=== PATIENT | female | born 1960 | race African-American/Black ===

== ENCOUNTER 2018-05-31 16:08 | Emergency (ER) | payer MEDICAID ==
[~2018-05-31] VITALS: Ht 170.2 cm; Wt 87.5 kg
[~2018-05-31 16:08] MED LIST: NORCO 5-325 TA1 EACH ORAL
[2018-05-31] MEDS ORDERED: BP med (16:18)
[2018-05-31] MEDS ORDERED: cholesterol (16:18)
[2018-05-31 16:20] VITALS: BP 138/87
--- NOTE | 2018-05-31 16:46 | Emergency Room Report ---
History of Present Illness General Chief Complaint: Female Urogenital Problems Source: Patient Present Illness HPI Mrs. Christian Steve is a 57-year-old female who has had vaginal bleeding and frequency of urination. She also has burning with urination. She denies hematuria. She's had recent negative pap smear. Hx history of hysterectomy transvaginal 20 years ago. Mild to moderate pelvic pain. Gradual onset 2 days ago. When standing, she has the immediate urge to urinate. Allergies: Coded Allergies: No Known Allergies (Unverified , 05/14/15) Patient History Past Medical History: see triage record Past Surgical History: hysterectomy Reviewed Nursing Documentation: PMH: Agreed; PSxH: Agreed Nursing Documentation-PMH Past Medical History: No History, Except For Hx Hypertension: Yes - high cholesterol Hx Asthma: Yes Review of Systems Constitutional: Denies: fever, malaise Gastrointestinal: Denies: nausea Genitourinary: Reports: dysuria, frequency, vag bleed/dc All Other Systems: negative except mentioned in HPI Physical Exam Vital Signs Date Time Temp Pulse Resp B/P (MAP) Pulse Ox O2 Delivery O2 Flow Rate FiO2 05/31/18 16:10 98.2 67 17 140/76 98 Room Air Sp02 EP Interpretation: reviewed, normal General Appearance: no apparent distress, alert, GCS 15, non-toxic Head: normocephalic, atraumatic Eyes: bilateral eye normal inspection ENT: hearing grossly normal, normal pharynx, no angioedema, normal voice Neck: full range of motion, supple/symm/no masses Respiratory: chest non-tender, lungs clear, normal breath sounds, no rhonchi, no respiratory distress, no retraction, no accessory muscle use, speaking full sentences Cardiovascular #1: regular rate, rhythm, no edema, no gallop, no JVD, no murmur , no rub Gastrointestinal: normal bowel sounds, non tender, soft, non-distended, no guarding, no rebound Genitourinary: normal inspection, bladder normal, ext genitalia/vag normal, urethra normal, other - no vaginal lesions or bleeding no discharge on speculum exam Musculoskeletal: back normal, gait/station normal, normal range of motion, non- tender Neurologic: alert, oriented x3, responsive, motor strength/tone normal, sensory intact, speech normal Psychiatric: judgement/insight normal, memory normal, mood/affect normal, no suicidal/homicidal ideation Skin: normal color, no rash, warm/dry, well hydrated Medical Decision Making Diagnostic Impression: Primary Impression: Pelvic pain Additional Impressions: Vagina bleeding Cystitis ER Course 1. 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 urinary urgency rx: keflex, pyridium to address possible UTI, DDX includes interstitial cystitis, bladder prolapse Last Vital Signs Date Time Temp Pulse Resp B/P (MAP) Pulse Ox O2 Delivery O2 Flow Rate FiO2 05/31/18 16:10 98.2 67 17 140/76 98 Room Air Disposition: HOME, SELF-CARE Condition: Stable Referrals: [facility],REFERRING (PCP) Joann Vogel MD May 31, 2018 16:46
[2018-05-31] MEDS ORDERED: CEPHALEXIN500 MG ORAL (16:50)
[2018-05-31] MEDS ORDERED: PHENAZOPYRIDIN200 MG ORAL (16:50)
[2018-05-31 16:54] VITALS: BP 138/87
== END 2018-05-31 16:54 | disposition home or self-care (01) ==
LOC: EMR 16:37
DX: R10.2 Pelvic and perineal pain (principal); N93.9 Abnormal uterine and vaginal bleeding, unspecified; N30.90 Cystitis, unspecified without hematuria; I10 Essential (primary) hypertension; J45.909 Unspecified asthma, uncomplicated
CPT/HCPCS: 99282